=== PATIENT | female | born 1970 ===

== ENCOUNTER → 2024-03-07 00:47 | Outpatient (CLI) | payer MEDICAID, SELFPAY ==
--- NOTE | 2024-03-07 | ETT_ITS ---
APPROVED REPORT Exam: Exercise Treadmill Patient Location: Out-Patient Room/Bed: Stress Nurse: Danielle Perry, RN, Kirsty Bruner RN Ordering Provider:MARTY LYNNAVITT, Contact Number: [phone] BMI: 20.36 Baseline Rhythm: Sinus Rhythm Indications: Other forms of dyspnea Medical History Medical History: asthma, depression, anxiety, hx of tobacco use, ZAPATA, palpitations Cardiac Medications: symbicort, buspirone Allergies: NKDA Cardiac Risk Factors: family hx, asthma, former smoker Exercise History: Physically active Lung Sounds: Clear to auscultation Heart Sounds: Regular Stress Test Details Test: Exercise stress testing was performed using a Serafin protocol. Rest Stress HR Resting HR Supine: 78 bpm Max Heart Rate (APMHR): 165 bpm Resting HR Standin bpm Target HR (85% APMHR): 140 bpm Max HR Achieved: 160 bpm % of APMHR: 97 Recovery HR: 86 bpm HR response to stress: Normal HR response to stress BP Resting BP Supine: 108/78 mmHg Resting BP Standin/72 mmHg Max BP: 140/80 mmHg Recovery BP: 110/72 mmHg BP response to stress: Normal blood pressure response to stress. ECG Resting ECG: Sinus Rhythm Stress ECG: Sinus Tachycardia ST Change: No significant ST segment changes noted Arrhythmia: Rare PVC Recovery ECG: Sinus Rhythm Recovery ST Change: No significant ST segment changes noted Clinical Reason for Termination: Target HR Achieved, Fatigue Stress Symptoms: General Fatigue Exercise duration: 08 min23 sec Highest Stage Reached: Stage 3: 3.4 mph at 14% grade. Exercise capacity: 10.16 METs Angina Score: None Fang Treadmill Score: 7.6 Rate Pressure Product: 75043 Stress ECG Conclusion 1. Resting electrocardiogram was normal 2. Patient exercised on the Serafin protocol and completed a workload of 10.16 METS 3. Normal heart rate and blood pressure response to exercise. The patient achieved 97% of predicted heart rate for age 4. There was no electrocardiographic evidence of myocardial ischemia 5. There were no dysrhythmias Fang Treadmill Score is 7.6 which is Low risk. Stress Test Summary STAGE Time (mins) Speed (mph) Grade (%) HR BP SpO2 SYMPTOMS METS Supine 78 108/78 Standing 92 122/72 98 1 3 1.7 10 114 124/78 98 4.5 2 6 2.5 12 138 138/60 7 3 9 3.4 14 160 10 1 min recovery 125 140/80 3 min recovery 92 132/64 6 min recovery 86 110/72
== END ==
PROVIDERS: PCP Internal Medicine; Visit Provider Physician Assistant
DX: R06.09 Other forms of dyspnea (principal)
CPT/HCPCS: 93017